=== PATIENT | male | born 1950 | race Caucasian/White ===

== ENCOUNTER 2020-03-01 14:56 | Inpatient (IN) ==
[2020-03-01] MEDS ORDERED: Isovue-370 500 ML BOTTLE IVP ONE (17:19)
[2020-03-01] MEDS ORDERED: Azithromycin 500 MG in 0.9 % Sodium Chloride 250 ML IVPB ONE (18:14)
[2020-03-01] MEDS ORDERED: CefTRIAXone 1,000 MG VIAL IM ONE (18:14)
[2020-03-01] MEDS ORDERED: Naloxone 0.4 MG/ML INJ IVP PRN (20:00)
[2020-03-01] MEDS ORDERED: Ondansetron 4 MG/2 ML VIAL IVP PRN (20:00)
[2020-03-01] MEDS ORDERED: cefTRIAXone 1,000 MG in Water for inj. (sterile) 10 ML IVP ONE (22:00)
[2020-03-01] MEDS: MethylPREDNISolone 40 MG/ML VIAL IVP SCH (23:49)
[2020-03-02] MEDS: Doxycycline 100 MG in 0.9 % Sodium Chloride Mini Bag 100 ML IVPB SCH ×2 (05:39→17:35)
[2020-03-02] MEDS: *HR* Heparin 5,000 UNIT/ML VIAL SQ SCH ×2 (05:40→17:36)
[2020-03-02] MEDS: MethylPREDNISolone 40 MG/ML VIAL IVP SCH ×2 (08:17→19:22)
[2020-03-02 09:13] LABS: White Blood Count 10.4 K/mcL (4.3-11.1)
[2020-03-02 09:14] LABS: Basophils % 0.4 %; Hematocrit 49.6 % (37.5-50.1); Hemoglobin 14.9 g/dL (12.9-16.9); Immature Granulocytes % 0.4 % (0-4); Lymphocytes # 0.5 K/mcL (0.6-4.6); Lymphocytes % 4.8 %; Mean Corpuscular Hemoglobin 28.9 pg (28.0-33.3); Mean Corpuscular Volume 96.1 fL (83.0-100.0); Mean Platelet Volume 10.2 fL (9.4-12.4); Monocytes # 0.2 K/mcL (0.0-1.3); Monocytes % 2.1 %; Neutrophils # 9.6 K/mcL (1.6-8.9); Platelet Count 308 K/mcL (140-400); Red Blood Count 5.16 M/mcL (4.19-5.50); Red Cell Distribution Width 13.8 % (11.5-14.5); Segmented Neutrophils % 92.3 %
[2020-03-02 09:35] LABS: BUN/Creatinine Ratio 23 (6-26); Blood Urea Nitrogen 16 mg/dL (8-23); Carbon Dioxide 40 mEq/L (23-29); Chloride 98 mEq/L (98-107); Glucose 155 mg/dL (70-105); Magnesium 2.1 mg/dL (1.6-2.6); Osmolality,Calculated 296 (280-300); Phosphorous 4.6 mg/dL (2.7-4.5); Potassium 5.1 mEq/L (3.5-5.1); Sodium 141 mEq/L (136-145); eGFR For African Americans > 60 (> 60); eGFR For Non-African Americans > 60 (> 60)
[2020-03-02 10:07] LABS: C-Reactive Protein 34 mg/L (Less than 10)
[2020-03-02] MEDS ORDERED: Furosemide 40 MG/4 ML VIAL IVP ONE ×2 (10:59→16:24)
[2020-03-02 13:09] LABS: Alanine Aminotransferase 135 Units/L (7-52); Albumin 4.6 g/dL (3.5-5.7); Albumin/Globulin Ratio 1.4 (1.1-2.2); Alkaline Phosphatase 85 Units/L (34-104); Aspartate Amino Transferase 93 Units/L (13-39); Bilirubin,Direct 0.1 mg/dL (0.0-0.2); Bilirubin,Indirect 0.3 mg/dL (0.0-1.0); Bilirubin,Total 0.4 mg/dL (0.3-1.0); Globulin 3.3 g/dL (2.4-3.5); Total Protein 7.9 g/dL (6.4-8.9); Troponin I < 0.03 ng/mL (< 0.04)
[2020-03-02] MEDS: cefTRIAXone 2,000 MG in 0.9 % Sodium Chloride Mini Bag 100 ML IVPB SCH (17:35)
[2020-03-02] MEDS ORDERED: Azithromycin 500 MG in 0.9 % Sodium Chloride 250 ML IVPB SCH (18:00)
[2020-03-02 20:24] LABS: Adenovirus Not Detected (Not Detect); Bordetella Pertussis Not Detected (Not Detect); Chlamydophila pneumoniae Not Detected (Not Detect); Coronavirus 229E Not Detected (Not Detect); Coronavirus HKU1 Not Detected (Not Detect); Coronavirus NL63 Not Detected (Not Detect); Coronavirus OC43 Not Detected (Not Detect); Human Metapneumovirus Not Detected (Not Detect); Human Rhinovirus/Enterovirus Not Detected (Not Detect); Influenza A Subtype 2009 H1 Not Detected (Not Detect); Influenza B Not Detected (Not Detect); Mycoplasma pneumoniae Not Detected (Not Detect); Parainfluenza Virus 1 Not Detected (Not Detect); Parainfluenza Virus 2 Not Detected (Not Detect); Parainfluenza Virus 3 Not Detected (Not Detect); Parainfluenza Virus 4 Not Detected (Not Detect); Respiratory Syncytial Virus Not Detected (Not Detect)
[2020-03-03] MEDS ORDERED: Methyl Salicylate/Menthol 57 APPL/57 GM TUBE TP PRN (01:34)
[2020-03-03 02:46] LABS: Hemoglobin 13.8 g/dL (12.9-16.9); Mean Corpuscular HGB Conc 31.4 g/dL (31.6-35.5); Mean Corpuscular Hemoglobin 29.1 pg (28.0-33.3); Mean Corpuscular Volume 92.8 fL (83.0-100.0); Mean Platelet Volume 9.5 fL (9.4-12.4); Platelet Count 332 K/mcL (140-400); Red Blood Count 4.74 M/mcL (4.19-5.50); Red Cell Distribution Width 13.6 % (11.5-14.5); White Blood Count 16.5 K/mcL (4.3-11.1)
[2020-03-03 03:09] LABS: BUN/Creatinine Ratio 33 (6-26); Blood Urea Nitrogen 29 mg/dL (8-23); Calcium 9.1 mg/dL (8.6-10.3); Carbon Dioxide 43 mEq/L (23-29); Chloride 93 mEq/L (98-107); Glucose 177 mg/dL (70-105); Magnesium 2.1 mg/dL (1.6-2.6); Osmolality,Calculated 296 (280-300); Potassium 4.6 mEq/L (3.5-5.1); Sodium 138 mEq/L (136-145); eGFR For African Americans > 60 (> 60); eGFR For Non-African Americans > 60 (> 60)
[2020-03-03] MEDS: *HR* Heparin 5,000 UNIT/ML VIAL SQ SCH ×2 (04:58→17:11)
[2020-03-03] MEDS: Doxycycline 100 MG in 0.9 % Sodium Chloride Mini Bag 100 ML IVPB SCH ×2 (04:58→17:09)
[2020-03-03 05:37] LABS: VBG HCO3 45 mEq/L (21-27); VBG PCO2 104 mmHg (41-51); VBG PH 7.24 pH Units (7.32-7.42); VBG PO2 50 mmHg (25-50)
[2020-03-03 06:28] LABS: ABG Base Excess 12 mEq/L (-2 to 3); ABG HCO3 43 mEq/L (21-27); ABG Oxygen Saturation 94 % (95-98); ABG PCO2 86 mmHg (35-45); ABG PH 7.31 pH Units (7.32-7.45); ABG PO2 85 mmHg (85-104); ABG TCO2 46 mEq/L (20-26)
[2020-03-03] MEDS: MethylPREDNISolone 40 MG/ML VIAL IVP SCH (08:37)
[2020-03-03] MEDS: Furosemide 40 MG/4 ML VIAL IVP SCH ×2 (11:54→21:24)
[2020-03-03] MEDS: Budesonide/Formoterol 160/4.5 1 PUFF INH IH SCH ×2 (17:07→21:52)
[2020-03-03] MEDS: cefTRIAXone 2,000 MG in 0.9 % Sodium Chloride Mini Bag 100 ML IVPB SCH (17:10)
[2020-03-04 02:46] LABS: Basophils % 0.2 %; Eosinophils % 0.1 %; Hematocrit 47.4 % (37.5-50.1); Hemoglobin 15.1 g/dL (12.9-16.9); Immature Granulocytes % 0.4 % (0-4); Lymphocytes # 1.4 K/mcL (0.6-4.6); Lymphocytes % 7.9 %; Mean Corpuscular HGB Conc 31.9 g/dL (31.6-35.5); Mean Corpuscular Hemoglobin 29.7 pg (28.0-33.3); Mean Corpuscular Volume 93.3 fL (83.0-100.0); Mean Platelet Volume 9.8 fL (9.4-12.4); Monocytes # 1.8 K/mcL (0.0-1.3); Monocytes % 10.2 %; Neutrophils # 14.4 K/mcL (1.6-8.9); Platelet Count 349 K/mcL (140-400); Red Blood Count 5.08 M/mcL (4.19-5.50); Red Cell Distribution Width 13.5 % (11.5-14.5); Segmented Neutrophils % 81.2 %; White Blood Count 17.8 K/mcL (4.3-11.1)
[2020-03-04 03:12] LABS: BUN/Creatinine Ratio 33 (6-26); Blood Urea Nitrogen 24 mg/dL (8-23); Calcium 9.4 mg/dL (8.6-10.3); Carbon Dioxide 43 mEq/L (23-29); Chloride 90 mEq/L (98-107); Glucose 131 mg/dL (70-105); Osmolality,Calculated 298 (280-300); Potassium 4.2 mEq/L (3.5-5.1); Sodium 141 mEq/L (136-145); eGFR For African Americans > 60 (> 60); eGFR For Non-African Americans > 60 (> 60)
[2020-03-04] MEDS: Doxycycline 100 MG in 0.9 % Sodium Chloride Mini Bag 100 ML IVPB SCH (06:02)
[2020-03-04] MEDS: *HR* Heparin 5,000 UNIT/ML VIAL SQ SCH ×2 (06:02→17:27)
[2020-03-04] MEDS: predniSONE 20 MG TABLET PO SCH (10:17)
[2020-03-04] MEDS: Furosemide 40 MG/4 ML VIAL IVP SCH ×2 (10:17→20:39)
[2020-03-04] MEDS: Budesonide/Formoterol 160/4.5 1 PUFF INH IH SCH ×2 (15:49→20:37)
[2020-03-04] MEDS: cefTRIAXone 2,000 MG in 0.9 % Sodium Chloride Mini Bag 100 ML IVPB SCH (17:44)
[2020-03-04] MEDS: Doxycycline 100 MG CAPSULE PO SCH (20:39)
[2020-03-05] MEDS: *HR* Heparin 5,000 UNIT/ML VIAL SQ SCH ×2 (05:30→17:15)
[2020-03-05 05:54] LABS: Hematocrit 47.8 % (37.5-50.1); Hemoglobin 14.7 g/dL (12.9-16.9); Mean Corpuscular HGB Conc 30.8 g/dL (31.6-35.5); Mean Corpuscular Hemoglobin 28.8 pg (28.0-33.3); Mean Corpuscular Volume 93.7 fL (83.0-100.0); Mean Platelet Volume 9.6 fL (9.4-12.4); Platelet Count 326 K/mcL (140-400); Red Cell Distribution Width 13.5 % (11.5-14.5); White Blood Count 12.8 K/mcL (4.3-11.1)
[2020-03-05 06:18] LABS: BUN/Creatinine Ratio 35 (6-26); Blood Urea Nitrogen 24 mg/dL (8-23); Calcium 9.6 mg/dL (8.6-10.3); Carbon Dioxide > 45 mEq/L (23-29); Chloride 92 mEq/L (98-107); Glucose 103 mg/dL (70-105); Osmolality,Calculated 294 (280-300); Sodium 140 mEq/L (136-145); eGFR For African Americans > 60 (> 60); eGFR For Non-African Americans > 60 (> 60)
[2020-03-05 07:17] LABS: ABG Base Excess 20 mEq/L (-2 to 3); ABG HCO3 50 mEq/L (21-27); ABG Oxygen Saturation 96 % (95-98); ABG PCO2 72 mmHg (35-45); ABG PH 7.45 pH Units (7.32-7.45); ABG PO2 85 mmHg (85-104); ABG TCO2 > 50 mEq/L (20-26)
[2020-03-05] MEDS: Ipratropium/Albuterol Neb 3 ML IH SCH ×4 (08:27→20:39)
[2020-03-05] MEDS: predniSONE 20 MG TABLET PO SCH (09:33)
[2020-03-05] MEDS: Doxycycline 100 MG CAPSULE PO SCH ×2 (09:34→21:10)
[2020-03-05] MEDS: Budesonide/Formoterol 160/4.5 1 PUFF INH IH SCH ×2 (12:34→20:40)
[2020-03-05] MEDS ORDERED: Perflutren Lipid Microsphere 1.3 ML in 0.9 % Sodium Chloride 8.7 ML IVP ONE (14:26)
[2020-03-05] MEDS: cefTRIAXone 2,000 MG in 0.9 % Sodium Chloride Mini Bag 100 ML IVPB SCH (17:14)
[2020-03-05] MEDS ORDERED: Furosemide 40 MG/4 ML VIAL IVP ONE (18:32)
[2020-03-06] MEDS: Ipratropium/Albuterol Neb 3 ML IH SCH ×6 (00:40→20:59)
[2020-03-06 05:26] LABS: Hematocrit 49.8 % (37.5-50.1); Hemoglobin 16.2 g/dL (12.9-16.9); Mean Corpuscular HGB Conc 32.5 g/dL (31.6-35.5); Mean Corpuscular Hemoglobin 29.9 pg (28.0-33.3); Mean Corpuscular Volume 92.1 fL (83.0-100.0); Mean Platelet Volume 9.9 fL (9.4-12.4); Platelet Count 345 K/mcL (140-400); Red Blood Count 5.41 M/mcL (4.19-5.50); Red Cell Distribution Width 13.6 % (11.5-14.5); White Blood Count 15.4 K/mcL (4.3-11.1)
[2020-03-06 05:55] LABS: BUN/Creatinine Ratio 38 (6-26); Blood Urea Nitrogen 30 mg/dL (8-23); Calcium 9.9 mg/dL (8.6-10.3); Carbon Dioxide 34 mEq/L (23-29); Chloride 96 mEq/L (98-107); Glucose 125 mg/dL (70-105); Magnesium 2.1 mg/dL (1.6-2.6); Osmolality,Calculated 290 (280-300); Potassium 3.8 mEq/L (3.5-5.1); Sodium 136 mEq/L (136-145); eGFR For African Americans > 60 (> 60); eGFR For Non-African Americans > 60 (> 60)
[2020-03-06] MEDS: *HR* Heparin 5,000 UNIT/ML VIAL SQ SCH ×2 (06:03→17:08)
[2020-03-06 06:17] LABS: ABG Base Excess 8 mEq/L (-2 to 3); ABG HCO3 37 mEq/L (21-27); ABG Oxygen Saturation 90 % (95-98); ABG PCO2 65 mmHg (35-45); ABG PH 7.36 pH Units (7.32-7.45); ABG PO2 62 mmHg (85-104); ABG TCO2 39 mEq/L (20-26)
[2020-03-06] MEDS: Budesonide/Formoterol 160/4.5 1 PUFF INH IH SCH ×2 (07:51→20:59)
[2020-03-06] MEDS: Doxycycline 100 MG CAPSULE PO SCH (08:31)
[2020-03-06] MEDS: Furosemide 40 MG/4 ML VIAL IVP SCH ×2 (08:31→10:36)
[2020-03-06] MEDS ORDERED: Furosemide 40 MG/4 ML VIAL IVP ONE (20:11)
[2020-03-07] MEDS: Ipratropium/Albuterol Neb 3 ML IH SCH ×6 (00:04→21:55)
[2020-03-07 01:02] LABS: Basophils # 0.1 K/mcL (0.0-0.2); Basophils % 0.6 %; Eosinophils # 0.2 K/mcL (0.0-0.6); Eosinophils % 1.7 %; Hematocrit 54.8 % (37.5-50.1); Hemoglobin 17.6 g/dL (12.9-16.9); Immature Granulocytes % 0.6 % (0-4); Lymphocytes # 1.7 K/mcL (0.6-4.6); Lymphocytes % 13.5 %; Mean Corpuscular HGB Conc 32.1 g/dL (31.6-35.5); Mean Corpuscular Hemoglobin 29.4 pg (28.0-33.3); Mean Corpuscular Volume 91.5 fL (83.0-100.0); Mean Platelet Volume 9.9 fL (9.4-12.4); Monocytes # 1.5 K/mcL (0.0-1.3); Platelet Count 408 K/mcL (140-400); Red Blood Count 5.99 M/mcL (4.19-5.50); Red Cell Distribution Width 13.7 % (11.5-14.5); Segmented Neutrophils % 71.6 %; White Blood Count 12.6 K/mcL (4.3-11.1)
[2020-03-07 01:23] LABS: BUN/Creatinine Ratio 38 (6-26); Blood Urea Nitrogen 33 mg/dL (8-23); Carbon Dioxide 36 mEq/L (23-29); Chloride 92 mEq/L (98-107); Glucose 132 mg/dL (70-105); Magnesium 2.1 mg/dL (1.6-2.6); Osmolality,Calculated 293 (280-300); Potassium 3.5 mEq/L (3.5-5.1); Sodium 137 mEq/L (136-145); eGFR For African Americans > 60 (> 60); eGFR For Non-African Americans > 60 (> 60)
[2020-03-07] MEDS: *HR* Heparin 5,000 UNIT/ML VIAL SQ SCH ×2 (05:48→16:52)
[2020-03-07] MEDS: Budesonide/Formoterol 160/4.5 1 PUFF INH IH SCH ×2 (07:28→21:55)
[2020-03-07] MEDS ORDERED: Furosemide 40 MG/4 ML VIAL IVP SCH (10:15)
[2020-03-07] MEDS ORDERED: Acetaminophen 325 MG TABLET PO ONE (22:25)
[2020-03-07] MEDS: Levalbuterol Neb 1.25 MG/3 ML IH SCH (23:54)
[2020-03-08] MEDS ORDERED: *HR* Metoprolol 5 MG/5 ML VIAL IVP ONE ×2 (02:20→02:22)
[2020-03-08] MEDS: Levalbuterol Neb 1.25 MG/3 ML IH SCH ×6 (03:17→23:20)
[2020-03-08] MEDS: *HR* Heparin 5,000 UNIT/ML VIAL SQ SCH ×2 (06:16→18:02)
[2020-03-08] MEDS: Budesonide/Formoterol 160/4.5 1 PUFF INH IH SCH ×2 (08:13→19:38)
[2020-03-08] MEDS: *HR* Metoprolol 5 MG/5 ML VIAL IVP PRN ×2 (13:11→13:46)
[2020-03-09] MEDS ORDERED: Acetaminophen 325 MG TABLET PO ONE (02:25)
[2020-03-09] MEDS: Levalbuterol Neb 1.25 MG/3 ML IH SCH ×3 (03:37→11:11)
[2020-03-09 04:09] LABS: BUN/Creatinine Ratio 38 (6-26); Blood Urea Nitrogen 26 mg/dL (8-23); Calcium 9.5 mg/dL (8.6-10.3); Carbon Dioxide 37 mEq/L (23-29); Chloride 95 mEq/L (98-107); Glucose 130 mg/dL (70-105); Magnesium 2.1 mg/dL (1.6-2.6); Osmolality,Calculated 291 (280-300); Potassium 3.7 mEq/L (3.5-5.1); Sodium 137 mEq/L (136-145); eGFR For African Americans > 60 (> 60); eGFR For Non-African Americans > 60 (> 60)
[2020-03-09] MEDS: *HR* Heparin 5,000 UNIT/ML VIAL SQ SCH (05:55)
[2020-03-09] MEDS: Budesonide/Formoterol 160/4.5 1 PUFF INH IH SCH (07:28)
[2020-03-09 11:23] VITALS: BP 131/67
== END 2020-03-09 15:24 | disposition home or self-care (01) | DRG 193 ==
LOC: EMEROOARM 14:56 → 2NENU 14:56 → SUATTDRO 19:31 → 2NENU 20:51 → SUATTDRO 03-02 11:20 → 3NENU 03-05 11:05 → 2ANU 03-06 19:52
PROVIDERS: ADMIT Internal Medicine; ATTEND Internal Medicine